=== PATIENT | female | born 1965 | race Caucasian/White ===

== ENCOUNTER → 2019-07-25 | Outpatient (CLI) | payer BC ==
[2019-07-25 14:17] VITALS: BP 114/87; PULSE 101; TEMP 97.7; BMI 35.4
[2019-07-25 16:19] LABS: MCH 29.8 pg (25.0-35.0); MCHC 32.6 g/dL (31.0-37.0); MCV 91.5 fL (80.0-100.0); Mean Platelet Volume 8.3; Platelet Count 261 k/uL (150-450); RBC 5.02 m/uL (3.80-5.40); RDW 13.1 % (11.5-15.5); WBC 7.7 k/uL (3.8-10.6)
[2019-07-26 00:12] LABS: Hemoglobin A1C 5.2 % (4.0-6.0)
[2019-07-26 00:50] LABS: African American GFR (CKD) 96.2 (60.0-200.0); Albumin 4.6 g/dL (3.80-4.90); Anion Gap 10.5 mmol/L (4.00-12.00); BUN/Creat Ratio 18.75 Ratio (12.00-20.00); Calcium 9.6 mg/dL (8.7-10.3); Carbon Dioxide 22.5 mmol/L (21.6-31.8); Globulin 2.3 g/dL (1.6-3.3); Potassium 4.1 mmol/L (3.5-5.5); Total Bilirubin 0.3 mg/dL (0.3-1.2); Total Protein 6.9 g/dL (6.2-8.2)
[2019-07-26 01:18] LABS: Folate, Serum 13.8 ng/mL
--- NOTE | 2019-08-01 14:40 | P.HPBAR ---
Bariatric H&P - History & Physicial H&P Date: 07/25/19 History & Physicial: Visit/CC: sleeve consult Patient initial contact: Initial weight: 102.648 kg Initial weight in pounds: 226.30 Height: 5 ft 7 in Initial BMI: 35.4 Last weight: Current weight: 102.648 kg Current weight in pounds: 226.30 Current BMI: 35.4 [place] body weight (based on NIH guidelines): 61.235 kg Excess body weight loss: 0.0% The patient is a 53 year-old F who presents for Bariatric Assessment. Patient presents today for presurgical gastric sleeve consultation. She has had lifetime problems obesity. Her LAP-BAND was removed over 10 years ago. Her current BMI is 35. Past Medical History Past Medical History: Hyperlipidemia, Hypertension Additional Past Medical History / Comment(s): Chrohns Disease, History of Any Multi-Drug Resistant Organisms: C-DIFF Year Discovered:: April 2018 MDRO Source:: stool Past Surgical History: Bariatric Surgery, Bladder Surgery, Breast Surgery, Orthopedic Surgery Additional Past Surgical History / Comment(s): lap band placed 02/23/2001 (removed 2009), right hand trigger finger release, bladder suspension, bilateral breast augmentation, panniculectomy, Past Anesthesia/Blood Transfusion Reactions: No Reported Reaction Past Psychological History: Anxiety, Depression Additional Psychological History / Comment(s): Takes Zoloft and wellbutrin daily Smoking Status: Current some day smoker Past Alcohol Use History: Occasional Past Drug Use History: None Reported Surgical - Exam Vital Signs Temp Pulse BP 97.7 F 101 H 114/87 07/25/19 14:10 07/25/19 14:10 07/25/19 14:10 - General well developed, no distress - Eyes PERRL - ENT normal pinna - Neck no masses - Respiratory normal expansion - Cardiovascular Rhythm: regular - Abdomen Abdomen: soft, non tender Results - Labs 07/25/19 15:31 07/25/19 15:31 Bariatric Assessment & Plan Plan: Morbid obesity, BMI 35. Dilantin discussion with the patient regarding sleeve gastrectomy. I went over the risks and benefits of procedure including possible gastric staple line disruption, bleeding or scarring. Bariatric Checklist Checklist: Plan: Checklist: EGD: 1. Hiatal hernia: 2. H. Pylori: HgbA1c: Vitamin D: Smoking: Current some day smoker Primary care physician referral: Dr. MARK Chavis ([facility] [place]) PH:[phone] Psychiatry clearance: Cardiology clearance: Sleep study: Diet journal: VTE risk score: VTE risk level: Rehab needs at discharge:
== END | disposition home or self-care (01) ==
LOC: BARWHC3 13:53
PROVIDERS: ATTEND Surgery
DX: E66.01 Morbid (severe) obesity due to excess calories (principal); F17.200 Nicotine dependence, unspecified, uncomplicated; Z68.35 Body mass index [BMI] 35.0-35.9, adult; Z98.84 Bariatric surgery status; E88.81 Metabolic syndrome and other insulin resistance; E55.9 Vitamin D deficiency, unspecified
CPT/HCPCS: 36415; 80053; 82306; 82607; 82746; 83036; 84425; 85027; 93005; 99211

== ENCOUNTER 2019-08-08 09:54 | Day surgery (SDC) | payer BC ==
[2019-08-05 12:56] VITALS: BMI 36.8
[~2019-08-08 09:54] MED LIST: LACTATED RINGERS 1,000 ML IV SCH; LIDOCAINE 1% 20 ML VIAL (10MG/ML) FOR IV START INTRADERMA PRN
[2019-08-08 10:19] VITALS: TEMP 98.6
[2019-08-08] MEDS ORDERED: LIDOCAINE 1% INJ 10MG/ML (20 ML MDV) ONE (10:43)
[2019-08-08] MEDS ORDERED: PROPOFOL 10 MG/ML 20 ML VIAL IV ONE (10:43)
--- NOTE | 2019-08-08 10:51 | P.GSHP ---
History of Present Illness H&P Date: 08/08/19 Chief Complaint: GERD, morbid obesity This a 54-year-old female who presents today for EGD. She's had issues with GERD. She's going pieces BMI 36 Past Medical History Past Medical History: GERD/Reflux, Hyperlipidemia, Hypertension Additional Past Medical History / Comment(s): Crohns Disease History of Any Multi-Drug Resistant Organisms: C-DIFF Date of last positivie culture/infection: April 2018 MDRO Source:: stool Past Surgical History: Bariatric Surgery, Bladder Surgery, Breast Surgery, Orthopedic Surgery Additional Past Surgical History / Comment(s): lap band placed 02/23/2001 (removed 2009), right hand trigger finger release, bladder suspension, bilateral breast augmentation, panniculectomy, Past Anesthesia/Blood Transfusion Reactions: No Reported Reaction Smoking Status: Current some day smoker Medications and Allergies Home Medications Medication Instructions Recorded Confirmed Type Gabapentin [Neurontin] 300 mg PO DAILY 07/25/19 08/08/19 History Mesalamine [Delzicol] 400 mg PO Q6HR 07/25/19 08/08/19 History Rosuvastatin [Crestor] 20 mg PO HS 07/25/19 08/08/19 History Sertraline [Zoloft] 100 mg PO DAILY 07/25/19 08/08/19 History Ustekinumab [Stelara] 45 mg IM QMONTH 07/25/19 08/08/19 History Zolpidem [Ambien] 10 mg PO HS PRN 07/25/19 08/08/19 History amLODIPine [Norvasc] 5 mg PO DAILY 07/25/19 08/08/19 History buPROPion XL [Wellbutrin XL] 150 mg PO DAILY 07/25/19 08/08/19 History Allergies Allergy/AdvReac Type Severity Reaction Status Date / Time No Known Allergies Allergy Verified 08/08/19 10:11 Surgical - Exam Vital Signs Pulse Resp BP Pulse Ox 77 16 144/65 98 08/08/19 10:14 08/08/19 10:14 08/08/19 10:14 08/08/19 10:14 - General well developed, well nourished, no distress - Eyes PERRL - ENT normal pinna - Neck no masses - Respiratory normal expansion - Cardiovascular Rhythm: regular - Abdomen Abdomen: soft, non tender Assessment and Plan Assessment: Morbid obesity GERD. We'll perform EGD.
--- NOTE | 2019-08-08 10:59 | P.OP ---
Date of Procedure: 08/08/19 Preoperative Diagnosis: Morbid obesity, BMI 36 GERD Postoperative Diagnosis: 4 obesity. Antral gastritis Hiatal hernia Esophagitis Procedure(s) Performed: EGD Anesthesia: MAC Surgeon: Esteban Lawson Pathology: other (Antrum, esophagus) Condition: stable Disposition: PACU Description of Procedure: The patient's placed on the endoscopy table in the lateral position. She received IV sedation. The gastroscope placed oropharynx and passed in the esophagus and into the stomach. Scope was then placed through the pylorus. The first and second portion of the duodenum appeared normal. The scope was then brought back the antrum this was mildly inflamed. A biopsies performed. The scope was then retroflexed and the remainder of the stomach appeared normal. There was a moderate size hiatal hernia. The GE junction was at 37 is. The distal esophagus appeared mildly inflamed a biopsies performed. The proximal esophagus appeared normal. Scope withdrawn for patient.
[2019-08-08 11:15] VITALS: BP 111/68; PULSE 65; RESP 17
== END 2019-08-08 11:35 | disposition home or self-care (01) ==
LOC: ORWHC2ENDO 09:54
PROVIDERS: ATTEND Surgery
DX: K21.0 Gastro-esophageal reflux disease with esophagitis (principal); K22.8 Other specified diseases of esophagus; K29.50 Unspecified chronic gastritis without bleeding; K44.9 Diaphragmatic hernia without obstruction or gangrene; E66.01 Morbid (severe) obesity due to excess calories; Z68.36 Body mass index [BMI] 36.0-36.9, adult; K50.90 Crohn's disease, unspecified, without complications; I10 Essential (primary) hypertension; E78.5 Hyperlipidemia, unspecified; Z86.19 Personal history of other infectious and parasitic diseases; Z98.84 Bariatric surgery status; F17.200 Nicotine dependence, unspecified, uncomplicated; F32.9 Major depressive disorder, single episode, unspecified; Z79.899 Other long term (current) drug therapy
CPT/HCPCS: 88305; 88312; 43239; J2001; J2704